=== PATIENT | female | born 1950 | race Caucasian/White ===

== ENCOUNTER 2023-03-09 16:44 | Emergency (ER) | payer MEDICARE, OTHER ==
[2023-03-09] MEDS ORDERED: Lidocaine 1% PF 5 ML VIAL ONE (17:12)
[2023-03-09] MEDS ORDERED: Boostrix 0.5 ML (Tdap) VIAL (>/=7 yrs of age) ONE (17:13)
[2023-03-09] MEDS ORDERED: Cephalexin 500 MG CAP ONE (18:11)
[2023-03-09] MEDS ORDERED: Bacitracin 1 PK ONE (18:11)
== END 2023-03-09 18:15 | disposition home or self-care (01) ==
LOC: MADERS 16:44
DX: S61.210A Laceration without foreign body of right index finger without damage to nail, initial encounter (principal); Z23 Encounter for immunization; E03.9 Hypothyroidism, unspecified; K21.9 Gastro-esophageal reflux disease without esophagitis; Z79.899 Other long term (current) drug therapy; W23.1XXA Caught, crushed, jammed, or pinched between stationary objects, initial encounter
CPT/HCPCS: 12002; 90471; 90715